=== PATIENT | female | born 1975 | race Two or more races ===

== ENCOUNTER 2021-03-22 13:31 | Outpatient (CLI) | payer OTHER ==
[~2021-03-22 13:31] MED LIST: CLARITIN10 MG PO
== END 2021-03-22 14:12 | disposition home or self-care (01) ==
LOC: LAB 13:31
PROVIDERS: ATTEND Specialist
DX: N90.1 Moderate vulvar dysplasia (principal); Z03.818 Encounter for observation for suspected exposure to other biological agents ruled out

== ENCOUNTER 2021-03-23 06:00 | Day surgery (SDC) | payer OTHER | END 2021-03-23 11:25 | disposition home or self-care (01) | LOC: CIR.AMB 06:00 | PROVIDERS: ATTEND Specialist | DX: D07.1 Carcinoma in situ of vulva (principal); Z20.822 Contact with and (suspected) exposure to COVID-19 ==